=== PATIENT | male | born 1995 | race Two or more races ===

== ENCOUNTER 2025-10-05 23:05 | Emergency (ER) | payer OTHER ==
[~2025-10-05] VITALS: Ht 180.3 cm; Wt 77.2 kg
[2025-10-06] MEDS: HYDROcodone-ACET 5/325MG TAB PO ONE (02:13)
[2025-10-06 02:15] VITALS: BP 125/79; PULSE 74; RESP 18; TEMP 97.5; O2SAT 100
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
[2025-10-06] MEDS ORDERED: IBUP-1456 PO (02:37)
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
== END 2025-10-06 02:46 | disposition home or self-care (01) ==
LOC: ER 23:05
DX: S93.401A Sprain of unspecified ligament of right ankle, initial encounter (principal); V03.10XA Pedestrian on foot injured in collision with car, pick-up truck or van in traffic accident, initial encounter; Y93.01 Activity, walking, marching and hiking; Y92.488 Other paved roadways as the place of occurrence of the external cause; Y99.8 Other external cause status
CPT/HCPCS: 29515; 73610